=== PATIENT | male | born 1960 | race Caucasian/White ===

== ENCOUNTER 2020-11-20 06:40 | Day surgery (SDC) | payer BC ==
[~2020-11-20] VITALS: Ht 188 cm; Wt 107.0 kg
[2020-11-20] VITALS (9 sets, daily range): BP systolic 122–147; BP diastolic 82–105
[~2020-11-20 06:40] MED LIST: ALBUAER3 IN; APIX5TAB PO; BUPR150T8 PO; CETI10CA PO; GABA800T97 PO; TRAZ100T3 PO
[2020-11-20] MEDS ORDERED: fentaNYL CITRATE 100 MCG/2 ML VL ONE (08:33)
[2020-11-20] MEDS ORDERED: MIDAZOLAM HCL 2MG/2ML 2ml VIAL (1mg/ml) ONE (08:33)
[2020-11-20] MEDS ORDERED: ANGIOMAX 250 MG VIAL IV ONE (08:33)
[2020-11-20] MEDS ORDERED: diphenhdrAMINE HCL 50 MG/1 ML VL ONE (08:33)
[2020-11-20] MEDS ORDERED: SODIUM CHL 0.9% 0 ML ONE (08:34)
[2020-11-20] MEDS ORDERED: VERAPAMIL 2.5MG/ML INJ 2ML VIAL IV ONE (08:37)
[2020-11-20] MEDS ORDERED: HEPARIN SODIUM (PORCINE) 5000 UNITS/ML 1ML VIAL ONE (08:55)
[2020-11-20] MEDS ORDERED: HYDROcodone-ACET 5/325MG TAB PO PRN (10:00)
[2020-11-20] MEDS ORDERED: ACETAMINOPHEN 500 MG TAB PO PRN (10:00)
[2020-11-20] MEDS ORDERED: ONDANSETRON HCL 4 MG/2 ML VIAL IV PRN (10:00)
== END 2020-11-20 11:35 | disposition home or self-care (01) ==
LOC: CATH 06:40
PROVIDERS: ATTEND Internal Medicine
DX: I25.118 Atherosclerotic heart disease of native coronary artery with other forms of angina pectoris (principal); Z20.822 Contact with and (suspected) exposure to COVID-19; Z88.8 Allergy status to other drugs, medicaments and biological substances; Z98.890 Other specified postprocedural states; Z79.899 Other long term (current) drug therapy
CPT/HCPCS: 93458; C1887; C1894; J1200; J1644; J2250; J3010; U0003; 99152